=== PATIENT | female | born 1945 | race Caucasian/White ===

== ENCOUNTER → 2018-03-31 | Day surgery (SDC) | payer MEDICARE, OTHER ==
[2018-03-24 13:03] LABS: BASOPHILS # (AUTO) 0.1 (0.0-0.1); BASOPHILS % 1.1 % (0.0-1.0); EOSINOPHILS # (AUTO) 0.2 (0.0-0.4); EOSINOPHILS % 3.4 % (0.0-6.0); HEMATOCRIT 38.7 % (34.2-44.1); HEMOGLOBIN 12.8 g/dL (12.0-16.0); LYMPHOCYTES # (AUTO) 1.7 (1.0-3.2); MEAN CORPUSCULAR HGB CONC 33.1 g/dL (31-35); MEAN CORPUSCULAR VOLUME 87.8 fL (81-99); MONOCYTES # (AUTO) 0.5 (0.2-0.8); MONOCYTES % 9.4 % (4.4-11.3); NEUTROPHILS % 54.6 % (38.7-80.0); PLATELET COUNT 289 x10e3/uL (140-360); RED BLOOD COUNT 4.41 x10e6/uL (3.6-5.1); RED CELL DISTRIBUTION WIDTH 13.3 % (11.7-14.4)
[~2018-03-31] MED LIST: ATENOLOL50 MG PO; BENTYL PO; BENTYL10 MG PO; LABETALOL HCL 5 MG/ML 20ML VIAL ONE; LIPITOR20 MG PO; LORATADINE10 MG PO; Lipitor PO; METOCLOPRAMIDE HCL 10 MG/2ML VIAL ONE; MIDAZOLAM HCL 2 MG/2 ML VIAL ONE; NEXIUM40 MG PO; OMEPRAZOLE20 MG PO; OXYBUTYNIN CHLOR5 MG PO; PROPOFOL IV EMULSION 10 MG/ML 20 ML VIAL ONE; SIMVASTATIN20 MG PO
--- NOTE | 2018-03-31 13:55 | Operative Report ---
DATE OF PROCEDURE: March 31, 2018 REFERRING PHYSICIAN: Dr. Donald Woodson PROCEDURE PERFORMED: Esophagogastroduodenoscopy with biopsies and esophageal dilatation. INDICATIONS FOR PROCEDURE: Acid reflux, dysphagia. MEDICATION: Patient was done under MAC. Please see anesthesiologist's note. DESCRIPTION OF PROCEDURE: With the patient in the left lateral decubitus position, the flexible fiberoptic Olympus gastroscope was introduced into the esophagus under direct visualization without any difficulty. There was some patchy erythema noted in the distal esophagus. Tongues of velvety red mucosa were noted in the distal esophagus extending approximately 3 cm from the GE junction. Biopsies were obtained. The GE junction was noted at 35 cm from the incisors. The scope was then advanced with ease into the stomach, traversing an approximately 4-cm hiatal hernia. Mucosa overlying the antrum and the body revealed some patchy erythema and low-grade edema, and biopsies were obtained and sent to stain for H. Pylori. There were several hyperplastic-appearing polyps noted in the body, and some were partially excised with cold biopsy forceps. The pylorus appeared to be of normal contour and shape. It was intubated with ease, and the scope was advanced all the way to the 2nd portion of the duodenum. The scope was then withdrawn slowly. Mucosa overlying the proximal 2nd portion and the duodenal bulb appeared to be within normal limits. The scope was then withdrawn back into the stomach and retroflexed. The previously described hiatal hernia was also noted in the retroflexed position. The scope was then straightened out. It was subsequently withdrawn. The esophagus was then dilated to size 52-Sudanese Giron. Patient tolerated the procedure well. IMPRESSION 1. Mild, patchy, distal esophagitis. 2. Rule out Mejia's esophagus. 3. Esophagus dilated to size 52-Sudanese Giron. 4. A 4-cm hiatal hernia. 5. Gastric polyps, hyperplastic-appearing, some partially excised with the cold biopsy forceps. 6. Gastritis, biopsied. Biopsies sent to stain for H. pylori. PLAN: Follow up histology. Increase omeprazole to 40 mg 1 p.o. a.c. b.i.d. Job#: [id number] cc:DONALD WOODSON MD
== END | disposition home or self-care (01) ==
LOC: OR 09:14
PROVIDERS: ATTEND Internal Medicine Gastroenterology
DX: K21.0 Gastro-esophageal reflux disease with esophagitis (principal); R13.10 Dysphagia, unspecified; K31.7 Polyp of stomach and duodenum; K29.40 Chronic atrophic gastritis without bleeding; K44.9 Diaphragmatic hernia without obstruction or gangrene; K31.9 Disease of stomach and duodenum, unspecified; I10 Essential (primary) hypertension; E78.00 Pure hypercholesterolemia, unspecified; Z01.810 Encounter for preprocedural cardiovascular examination; Z01.812 Encounter for preprocedural laboratory examination; Z86.010 Personal history of colon polyps; Z88.6 Allergy status to analgesic agent; Z88.5 Allergy status to narcotic agent; Z88.0 Allergy status to penicillin
CPT/HCPCS: 36415; 43239; 43450; 85025; 88305; 88312; 93005; J2250; J2765; J3490

== ENCOUNTER 2018-06-21 08:43 | Inpatient (IN) | payer MEDICARE, OTHER ==
[~2018-06-21] VITALS: Ht 152.4 cm; Wt 95.3 kg
[~2018-06-21 08:43] MED LIST changes: -LABETALOL HCL 5 MG/ML 20ML VIAL ONE; -METOCLOPRAMIDE HCL 10 MG/2ML VIAL ONE; -MIDAZOLAM HCL 2 MG/2 ML VIAL ONE; -PROPOFOL IV EMULSION 10 MG/ML 20 ML VIAL ONE
--- OUTSIDE RECORDS SUMMARY | 2018-06-21 08:46 | XMS REPORT ---
Author Author [facility] Address Unknown Phone Unavailable Care Team Providers Care Music Video Director Name Role Phone Unavailable Unavailable Payers Payer Name Policy Type Policy Number Effective Date Expiration Date Problems This patient has no known problems. Allergies, Adverse Reactions, Alerts Allergy Name Allergy Type Status Severity Reaction(s) Onset Date Inactive Date Treating Clinician Comments Penicillins DA Active U 2004-06-22 00:00:00 Cephalosporins DA Active U 2004-06-22 00:00:00 Betalactams DA Active U 2004-06-22 00:00:00 Carbapenems DA Active U 2004-06-22 00:00:00 codeine DA Active U 2004-06-22 00:00:00 opium DA Active U 2004-06-22 00:00:00 propoxyphene DA Active U 2004-06-22 00:00:00 pentazocine DA Active U 2004-06-22 00:00:00 penicillin G DA Active U 2004-06-22 00:00:00 Not Converted 29. See Text. DA Active U 2004-06-22 00:00:00 No Known Contrast Allergies DA Active U 2004-06-22 00:00:00 No Known Food Allergies DA Active U 2004-06-22 00:00:00 No Known Other Allergies DA Active U 2004-06-22 00:00:00 OPIATES DA Active U 2004-06-22 00:00:00 PENICILLIN DA Active U 2004-06-22 00:00:00 Medications This patient has no known medications.
[2018-06-21 10:13] LABS: BASOPHILS # (AUTO) 0.1 (0.0-0.1); EOSINOPHILS # (AUTO) 0.2 (0.0-0.4); EOSINOPHILS % 2.6 % (0.0-6.0); HEMATOCRIT 40.2 % (34.2-44.1); HEMOGLOBIN 13.6 g/dL (12.0-16.0); LYMPHOCYTES # (AUTO) 1.6 (1.0-3.2); LYMPHOCYTES % 27.9 % (18.0-39.1); MEAN CORPUSCULAR HEMOGLOBIN 29.2 pg (28-32); MEAN CORPUSCULAR HGB CONC 33.8 g/dL (31-35); MEAN CORPUSCULAR VOLUME 86.5 fL (81-99); MONOCYTES # (AUTO) 0.6 (0.2-0.8); MONOCYTES % 9.9 % (4.4-11.3); NEUTROPHILS # (AUTO) 3.4 (2.1-6.9); NEUTROPHILS % 57.9 % (38.7-80.0); PLATELET COUNT 254 x10e3/uL (140-360); RED BLOOD COUNT 4.65 x10e6/uL (3.6-5.1); RED CELL DISTRIBUTION WIDTH 12.7 % (11.7-14.4)
[2018-06-21 10:26] LABS: ALANINE AMINOTRANSFERASE 45 IU/L (0-55); ALBUMIN 4.2 g/dL (3.5-5.0); ALBUMIN/GLOBULIN RATIO 1.4 (0.8-2.0); ALKALINE PHOSPHATASE 60 IU/L (40-150); ANION GAP 14.1 mmol/L (8-16); BLOOD UREA NITROGEN 14 mg/dL (7-26); BUN/CREATININE RATIO 16 (6-25); CALCIUM 10.2 mg/dL (8.4-10.2); CARBON DIOXIDE 24 mmol/L (22-29); CHLORIDE 104 mmol/L (98-107); EST GLOMERULAR FILTRATION RATE > 60 ML/MIN (60-); GLUCOSE 146 mg/dL (74-118); POTASSIUM 4.1 mmol/L (3.5-5.1); SODIUM 138 mmol/L (136-145)
[2018-06-21 10:41] LABS: BILIRUBIN,URINE NEGATIVE (NEGATIVE); CLARITY,URINE SL CLOUDY (CLEAR); COLOR,URINE YELLOW (YELLOW); KETONES,URINE NEGATIVE (NEGATIVE); LEUKOCYTE ESTERASE ,URINE TRACE (NEGATIVE); NITRITE,URINE NEGATIVE (NEGATIVE); PROTEIN,URINE DIPSTICK NEGATIVE (NEGATIVE); URINE UROBILINOGEN 0.2 mg/dL (0.2 - 1)
--- NOTE | 2018-06-21 11:51 | Diagnostic Imaging Report ---
PROCEDURE: X-RAY CHEST, TWO VIEWS COMPARISON: No comparison available to PACS issues. INDICATIONS: PREOPERATIVE CHEST XRAY FOR HIATAL HERNIA SURGERY FINDINGS: LUNGS: No consolidations or edema. PLEURA: No effusions or pneumothorax. HEART & MEDIASTINUM: The heart is within normal size-limits. Calcification within the thoracic aorta the which is tortuous. BONES & SOFT TISSUES: Degenerative changes of the spine. Mild wedge deformity of T12. Cervical anterior plate overlying the lower cervical spine. High density contrast within the left upper quadrant of the abdomen and likely is retained contrast within a gastric diverticulum as discussed in the June [address] CONCLUSION: No acute thoracic abnormality. Bennett Levine D.O. Dictated by: Bennett Levine D.O. on 06/21/2018 at 12:00 Electronically approved by: Bennett Levine D.O. on 06/21/2018 at 12:00
[2018-06-21] MEDS ORDERED: BUPIVACAINE 0.25%/EPI 30ML SDV INJ ONE (13:32)
[2018-06-21] MEDS ORDERED: FENTANYL CITRATE/PF 100MCG/2 ML INJ ONE ×2 (15:57→16:34)
[2018-06-21] MEDS ORDERED: MIDAZOLAM HCL 2 MG/2 ML VIAL ONE (15:57)
[2018-06-21] MEDS: SODIUM CHLORIDE 0.9% 1000ML 1,000 ML IV SCH ×2 (16:23→20:08)
[2018-06-21] MEDS ORDERED: HYDROMORPHONE 1MG/1ML INJ IV PRN (16:30)
[2018-06-21] MEDS ORDERED: LABETALOL HCL 20 ML ONE (16:30)
[2018-06-21] MEDS ORDERED: HYDROMORPHONE 2MG/ML 2 MG/ML ML ONE (17:18)
[2018-06-21] MEDS ORDERED: PANTOPRAZOLE 40 MG 10ML VIAL ONE (17:40)
[2018-06-21] MEDS ORDERED: METOCLOPRAMIDE HCL 10 MG/2ML VIAL ONE (17:40)
[2018-06-21] MEDS: PANTOPRAZOLE 40 MG 10ML VIAL IV SCH (17:57)
[2018-06-21] MEDS ORDERED: DEXAMETHASONE SOD PHOS INJ 4 MG/ML VIAL ONE (18:32)
[2018-06-21] MEDS ORDERED: LIDOCAINE HCL 2% LOCAL INJ 5 ML SDV VIAL INJ ONE (18:32)
[2018-06-21] MEDS ORDERED: PROPOFOL IV EMULSION 10 MG/ML 20 ML VIAL ONE (18:32)
[2018-06-21] MEDS ORDERED: ROCURONIUM BROMIDE 10 MG/ML 5ML VIAL ONE (18:32)
[2018-06-21] MEDS ORDERED: SEVOFLURANE INHAL SOLN 250 ML PEN BTL ONE (18:32)
[2018-06-21] MEDS ORDERED: ONDANSETRON HCL INJ 2 MG/ML VIAL ONE (18:32)
[2018-06-21] MEDS ORDERED: MEPERIDINE HCL INJ 50 MG/ML INJ ONE (19:32)
[2018-06-21 20:00] VITALS: BP 167/76
--- NOTE | 2018-06-21 20:22 | Operative Report ---
DATE OF PROCEDURE: June 21, 2018 PREOPERATIVE DIAGNOSES 1. Hiatal hernia with gastroesophageal reflux disease. 2. Cholecystitis and cholelithiasis. POSTOPERATIVE DIAGNOSES 1. Hiatal hernia with gastroesophageal reflux disease. 2. Cholecystitis and cholelithiasis. OPERATION PERFORMED: Laparoscopic repair of hiatal hernia with Jacob fundoplication and laparoscopic cholecystectomy. WAISTLINE JOINER LOCKSTITCH: Dr. Sebsatian Middleton. ANESTHESIA: General. COMPLICATIONS: None. ESTIMATED BLOOD LOSS: Minimal. DESCRIPTION OF PROCEDURE: With the patient lying in bed in the supine position under good general endotracheal anesthesia, the abdomen was prepped with Betadine solution and draped in the usual manner. A Veress needle was introduced into the left mid abdomen and pneumoperitoneum was established without any difficulty. An 11 mm trocar was placed in the left mid abdomen and a 10 mm video laparoscope was placed into the intraabdominal cavity. Under direct vision, two 5 mm trocars were placed in the subxiphoid region and another 11 mm trocar was placed in the left anterior axillary line and another 5 mm trocar was placed in the right upper quadrant. Video laparoscopy at this point revealed some fatty infiltration of the liver with a rather floppy left lobe of the liver. The patient had some adhesions to the gallbladder and a large gallstone contained within the gallbladder. In the area the hiatus there was a moderate-sized hiatal hernia present. There was a large fat pad in the hiatus as well. We decided to go ahead and proceed with the repair of hiatal hernia with Jacob fundoplication first. Using the harmonic scalpel, the right hiatal muscle was identified and freed up of all adhesions. We then managed to get posterior to the esophagus without any difficulty and cleared up the posterior esophagus. The patient had a previous bougie placed in the stomach. The esophagus was then cleared anteriorly without any difficulty as well and the short gastrics were then taken down with the harmonic scalpel all the way up to the top of the fundus and the fundus was totally freed up. The hernia was reduced back to the intra-abdominal cavity and some of the excess fat pad was resected. After this was done, the hiatus was then closed posteriorly with 2 sutures of 0 Ethibond thus giving us a good approximation of the hiatus without any tension. After this was done, the fundus of the stomach was then brought in a retroesophageal fashion to create a 360 degree wrap, which was a floppy type wrap without any tension whatsoever. The Jacob fundoplication was then performed using 0 Ethibond anchoring one side of the fundus to the lower esophagus to the other side of the fundus. Three sutures were utilized, and the skin was nice satisfactory floppy Jacob fundoplication without any tension whatsoever. The bougie was then removed and the nasogastric tube was left in place. At this point, we proceeded with the cholecystectomy. All the adhesions to the gallbladder were then slowly and carefully taken down. The peritoneum overlying the neck of the gallbladder was then opened and the cystic duct was identified. Cystic duct was followed to its junction with the common duct. Cystic duct was then circumferentially dissected away from the common duct, doubly clipped and divided. Cystic artery was similarly doubly clipped and divided. Gallbladder was then slowly and carefully taken off the liver bed using the harmonic scalpel and perfect hemostasis was ascertained. The gallbladder was grasped through the 12 mm trocar site and removed without any difficulty. Video laparoscopy was then again carried out. The liver bed was found to be perfectly dry. All of the excess fluid was aspirated. The area of the hiatus was also inspected and there was no bleeding whatsoever. The pneumoperitoneum was evacuated and all the trocars were removed under direct vision. The fascia of the 11 mm trocar was then closed with 0 Vicryl. All layers were infiltrated on the way out with solution of 0.25% percent Marcaine. Subcutaneous tissue was approximated with 3-0 Vicryl and the skin was closed with subcuticular 5-0 Vicryl. Benzoin, Steri-Strips and Band-Aids were applied. The sponge, lap and needle count was correct. Patient tolerated the procedure well and returned to the recovery room in stable condition. Job#: [id number]
[2018-06-21 20:26] VITALS: BP 151/72
[2018-06-21] MEDS: SODIUM CHLORIDE 0.9% 250ML IRRIG IR SCH (20:30)
[2018-06-21] MEDS: ONDANSETRON HCL INJ 2 MG/ML VIAL IV PRN (21:06)
[2018-06-22] VITALS (10 sets, daily range): BP systolic 126–179; BP diastolic 63–81
[2018-06-22] MEDS: SODIUM CHLORIDE 0.9% 250ML IRRIG IR SCH ×6 (00:30→20:43)
[2018-06-22] MEDS: ONDANSETRON HCL INJ 2 MG/ML VIAL IV PRN ×4 (01:10→22:34)
[2018-06-22] MEDS: SODIUM CHLORIDE 0.9% 1000ML 1,000 ML IV SCH ×3 (01:18→22:21)
[2018-06-22] MEDS: HYDROMORPHONE 2MG/ML 2 MG/ML ML IV PRN ×3 (03:15→17:38)
[2018-06-22 05:48] LABS: BASOPHILS % 0.2 % (0.0-1.0); HEMATOCRIT 38.7 % (34.2-44.1); HEMOGLOBIN 12.8 g/dL (12.0-16.0); LYMPHOCYTES # (AUTO) 0.8 (1.0-3.2); MEAN CORPUSCULAR HEMOGLOBIN 29.4 pg (28-32); MEAN CORPUSCULAR HGB CONC 33.1 g/dL (31-35); MONOCYTES # (AUTO) 0.9 (0.2-0.8); MONOCYTES % 9.5 % (4.4-11.3); NEUTROPHILS # (AUTO) 7.4 (2.1-6.9); NEUTROPHILS % 80.9 % (38.7-80.0); PLATELET COUNT 237 x10e3/uL (140-360); RED BLOOD COUNT 4.35 x10e6/uL (3.6-5.1); RED CELL DISTRIBUTION WIDTH 12.6 % (11.7-14.4)
[2018-06-22 06:07] LABS: ANION GAP 16.3 mmol/L (8-16); BLOOD UREA NITROGEN 14 mg/dL (7-26); BUN/CREATININE RATIO 16 (6-25); CALCIUM 9.2 mg/dL (8.4-10.2); CARBON DIOXIDE 22 mmol/L (22-29); CHLORIDE 101 mmol/L (98-107); CREATININE, SERUM 0.87 mg/dL (0.57-1.11); EST GLOMERULAR FILTRATION RATE > 60 ML/MIN (60-); GLUCOSE 186 mg/dL (74-118); POTASSIUM 4.3 mmol/L (3.5-5.1); SODIUM 135 mmol/L (136-145)
[2018-06-22] MEDS: ATENOLOL 50 MG TAB PO SCH (09:00)
[2018-06-22] MEDS ORDERED: PROMETHAZINE 12.5MG/ NACL 0.9% 12.5 MG/50 ML BAG IV ONE (11:45)
[2018-06-22] MEDS: PANTOPRAZOLE 40 MG 10ML VIAL IV SCH (14:52)
[2018-06-22] MEDS ORDERED: PROMETHAZINE 12.5MG/ NACL 0.9% 12.5 MG/50 ML BAG IV PRN (19:45)
[2018-06-22] MEDS: BISACODYL 10 MG SUPP PR SCH (21:30)
[2018-06-22] MEDS: MORPHINE SULFATE INJ 4 MG/ML INJ IV PRN (22:34)
[2018-06-23 00:04] VITALS: BP 154/66
[2018-06-23] MEDS: SODIUM CHLORIDE 0.9% 250ML IRRIG IR SCH ×6 (00:55→20:09)
[2018-06-23] MEDS: MORPHINE SULFATE INJ 4 MG/ML INJ IV PRN ×3 (02:16→07:59)
[2018-06-23] MEDS: ONDANSETRON HCL INJ 2 MG/ML VIAL IV PRN ×2 (03:00→07:30)
[2018-06-23 04:25] VITALS: BP 137/60
[2018-06-23 05:56] LABS: BASOPHILS % 0.3 % (0.0-1.0); EOSINOPHILS # (AUTO) 0.1 (0.0-0.4); EOSINOPHILS % 0.6 % (0.0-6.0); HEMATOCRIT 38.7 % (34.2-44.1); HEMOGLOBIN 12.1 g/dL (12.0-16.0); LYMPHOCYTES # (AUTO) 1.8 (1.0-3.2); LYMPHOCYTES % 20.1 % (18.0-39.1); MEAN CORPUSCULAR HEMOGLOBIN 28.7 pg (28-32); MEAN CORPUSCULAR HGB CONC 31.3 g/dL (31-35); MEAN CORPUSCULAR VOLUME 91.9 fL (81-99); MONOCYTES # (AUTO) 0.9 (0.2-0.8); MONOCYTES % 10.2 % (4.4-11.3); NEUTROPHILS % 68.5 % (38.7-80.0); PLATELET COUNT 240 x10e3/uL (140-360); RED BLOOD COUNT 4.21 x10e6/uL (3.6-5.1); RED CELL DISTRIBUTION WIDTH 13.2 % (11.7-14.4)
[2018-06-23 06:26] LABS: CALCIUM 9.1 mg/dL (8.4-10.2); CREATININE, SERUM 0.95 mg/dL (0.57-1.11)
[2018-06-23] MEDS: BISACODYL 10 MG SUPP PR SCH (08:00)
[2018-06-23] MEDS: ATENOLOL 50 MG TAB PO SCH ×2 (09:00→12:25)
[2018-06-23 10:08] VITALS: BP 176/74
[2018-06-23] MEDS ORDERED: ONDANSETRON HCL INJ 2 MG/ML VIAL IV ONE (10:45)
[2018-06-23] MEDS: SODIUM CHLORIDE 0.9% 1000ML 1,000 ML IV SCH ×2 (12:33→18:38)
[2018-06-23] MEDS: METOCLOPRAMIDE HCL 10 MG/2ML VIAL IV SCH ×2 (12:35→18:00)
[2018-06-23] MEDS ORDERED: BISACODYL 10 MG SUPP PR ONE (12:35)
[2018-06-23 12:43] VITALS: BP 180/81
[2018-06-23 16:25] VITALS: BP 151/67
[2018-06-23] MEDS: PANTOPRAZOLE 40 MG 10ML VIAL IV SCH (18:00)
[2018-06-23 20:00] VITALS: BP 134/64
[2018-06-24] VITALS: BP 135/60
[2018-06-24] MEDS: SODIUM CHLORIDE 0.9% 250ML IRRIG IR SCH (00:30)
[2018-06-24] MEDS: METOCLOPRAMIDE HCL 10 MG/2ML VIAL IV SCH (00:40)
[2018-06-24 05:41] LABS: BASOPHILS # (AUTO) 0.1 (0.0-0.1); BASOPHILS % 0.7 % (0.0-1.0); EOSINOPHILS # (AUTO) 0.1 (0.0-0.4); EOSINOPHILS % 1.6 % (0.0-6.0); HEMATOCRIT 34.9 % (34.2-44.1); HEMOGLOBIN 11.2 g/dL (12.0-16.0); LYMPHOCYTES # (AUTO) 1.5 (1.0-3.2); LYMPHOCYTES % 20.4 % (18.0-39.1); MEAN CORPUSCULAR HEMOGLOBIN 28.8 pg (28-32); MEAN CORPUSCULAR HGB CONC 32.1 g/dL (31-35); MEAN CORPUSCULAR VOLUME 89.7 fL (81-99); MONOCYTES # (AUTO) 0.8 (0.2-0.8); MONOCYTES % 10.6 % (4.4-11.3); NEUTROPHILS # (AUTO) 4.9 (2.1-6.9); NEUTROPHILS % 66.3 % (38.7-80.0); PLATELET COUNT 221 x10e3/uL (140-360); RED BLOOD COUNT 3.89 x10e6/uL (3.6-5.1); RED CELL DISTRIBUTION WIDTH 12.8 % (11.7-14.4)
[2018-06-24] MEDS ORDERED: BISACODYL 10 MG SUPP PR ONE (06:00)
[2018-06-24 06:19] LABS: ANION GAP 9.9 mmol/L (8-16); BLOOD UREA NITROGEN 10 mg/dL (7-26); BUN/CREATININE RATIO 13 (6-25); CALCIUM 8.8 mg/dL (8.4-10.2); CARBON DIOXIDE 26 mmol/L (22-29); CHLORIDE 106 mmol/L (98-107); CREATININE, SERUM 0.76 mg/dL (0.57-1.11); EST GLOMERULAR FILTRATION RATE > 60 ML/MIN (60-); GLUCOSE 121 mg/dL (74-118); POTASSIUM 3.9 mmol/L (3.5-5.1); SODIUM 138 mmol/L (136-145)
[2018-06-24] MEDS: ONDANSETRON HCL INJ 2 MG/ML VIAL IV PRN (06:30)
[2018-06-24] MEDS: SODIUM CHLORIDE 0.9% 1000ML 1,000 ML IV SCH ×2 (06:30→14:44)
[2018-06-24 08:24] VITALS: BP 152/67
[2018-06-24] MEDS: ATENOLOL 50 MG TAB PO SCH (09:27)
[2018-06-24 09:35] VITALS: BP 152/67
[2018-06-24 17:17] VITALS: BP 172/75
[2018-06-24] MEDS: PANTOPRAZOLE 40 MG 10ML VIAL IV SCH (18:48)
[2018-06-24 20:00] VITALS: BP 184/83
[2018-06-24 20:37] VITALS: BP 184/83
[2018-06-24] MEDS: BISACODYL 10 MG SUPP PR SCH (20:37)
[2018-06-25] VITALS (7 sets, daily range): BP systolic 144–182; BP diastolic 66–81
[2018-06-25] MEDS ORDERED: NITROGLYCERIN 2% OINT 1 GM PKT TOP PRN (00:45)
[2018-06-25] MEDS: SODIUM CHLORIDE 0.9% 1000ML 1,000 ML IV SCH (04:23)
[2018-06-25] MEDS: BISACODYL 10 MG SUPP PR SCH (08:00)
[2018-06-25] MEDS: ATENOLOL 50 MG TAB PO SCH (09:01)
[2018-06-25] MEDS ORDERED: FUROSEMIDE INJ 10 MG/ML 4 ML VIAL ONE (15:33)
[2018-06-25] MEDS ORDERED: FUROSEMIDE INJ 10 MG/ML 2 ML VIAL IV ONE (16:30)
[2018-06-25] MEDS: PANTOPRAZOLE 40 MG 10ML VIAL IV SCH (17:01)
--- NOTE | 2018-08-15 19:10 | Discharge Summary ---
ADMITTING DIAGNOSIS: Hiatal hernia with gastroesophageal reflux disease and cholelithiasis. DISCHARGE DIAGNOSIS: Hiatal hernia with gastroesophageal reflux disease and cholelithiasis. SECONDARY DIAGNOSIS:: Included hypertension. OPERATIONS PERFORMED: Was laparoscopic repair of hiatal hernia with Jacob fundoplication and laparoscopic cholecystectomy. COMPLICATIONS: None. HISTORY OF PRESENT ILLNESS: This 73-year-old female was admitted to the hospital with a history of having chronic indigestion with nausea, vomiting and gastroesophageal reflux disease. She also had an ultrasound of the gallbladder that showed her to have gallstones. Physical examination at time of admission was essentially negative. Patient was taken to surgery on the day of admission where she underwent an uneventful repair of a large hiatal hernia with Jacob fundoplication and also laparoscopic cholecystectomy. Postoperatively the patient did very well. Her nasogastric tube was removed on the 2nd postoperative day and she was started on a clear liquid diet which was advanced to a full liquid diet which she tolerated well. Finally on 06/25/2018 with the patient being afebrile, vital signs being stable, her wounds healing nicely, tolerating a full liquid diet well she was discharged to go home to be followed at the office at a later date. ELIN DOSS MD Job#: [id number]
== END 2018-06-25 20:50 | disposition home or self-care (01) | DRG 327 ==
LOC: OR 08:43 → PACU V 16:25 → MED/SURG2 19:08 → MED/SURG 06-22 15:27
PROVIDERS: ADMIT Surgery; ATTEND Surgery
PROC: 0FT44ZZ Resection of Gallbladder, Percutaneous Endoscopic Approach (ICD-10-PCS; 2018-06-21)
PROC: 0DV44ZZ Restriction of Esophagogastric Junction, Percutaneous Endoscopic Approach (ICD-10-PCS; principal; 2018-06-21 13:30)
PROC: 0BQT4ZZ Repair Diaphragm, Percutaneous Endoscopic Approach (ICD-10-PCS; 2018-06-21 13:30)
DX: K21.9 Gastro-esophageal reflux disease without esophagitis (principal); K80.10 Calculus of gallbladder with chronic cholecystitis without obstruction; Z68.41 Body mass index [BMI] 40.0-44.9, adult; K44.9 Diaphragmatic hernia without obstruction or gangrene; K82.8 Other specified diseases of gallbladder; Z01.810 Encounter for preprocedural cardiovascular examination; Z01.812 Encounter for preprocedural laboratory examination; Z01.811 Encounter for preprocedural respiratory examination; Z88.6 Allergy status to analgesic agent; Z88.5 Allergy status to narcotic agent; Z88.0 Allergy status to penicillin; Z88.8 Allergy status to other drugs, medicaments and biological substances; E66.9 Obesity, unspecified; J84.10 Pulmonary fibrosis, unspecified; N18.9 Chronic kidney disease, unspecified; E78.5 Hyperlipidemia, unspecified
CPT/HCPCS: 36415; 71046; 80048; 80053; 81003; 85025; 88304; 93005; C1766; J1100; J1940; J2001; J2175; J2250; J2270; J2405; J2550; J2765; J7030

== ENCOUNTER → 2019-10-23 | Outpatient (CLI) | payer MEDICARE, OTHER ==
[~2019-10-23] MED LIST changes: +IOPAMIDOL 370 MG/ML 200 ML INFUS..BTL INJ ONE; +SODIUM CHLORIDE 0.9% 100 ML ONE
[2019-10-23 11:30] LABS: CREATININE, SERUM 0.99 mg/dL (0.57-1.11)
--- NOTE | 2019-10-23 13:46 | Diagnostic Imaging Report ---
Examination: Cervical CT Angiogram with Contrast Clinical indication:Swelling in the neck. History of stenosis. Comparison studies:None Technique: Axial images were obtained from the thoracic inlet. Coronal and sagittal images reconstructed from the axial data. Intravenous contrast: 100 cc of [id number]. Computer generated maximum intensity projection and 3D images were performed of the bilateral carotid bifurcations and the aortic arch with bilateral common carotid and cervical internal carotid arteries on a separate workstation. Degree of stenosis at the carotid bulbs, if present, will be calculated using NASCET criteria where the smallest diameter at the location of stenosis is compared to the diameter of the more distal non-diseased vessel lumen. Dose modulation, iterative reconstruction, and/or weight based adjustment of the mA/kV was utilized to reduce the radiation dose to as low as reasonably achievable. Findings: Aortic arch and major vessels: Patent despite calcific plaque. Common carotid arteries: Patent Cervical carotid bifurcations: Right: Patent. Nonstenotic calcific plaque. Left :Patent. Nonstenotic calcific plaque. Internal carotid arteries: Right: There is mild (approximately 18%) stenosis of the proximal cervical segment of the right internal carotid artery for a length of 6.4 mm. Left: There is mild (approximately 33%) stenosis of the proximal cervical segment of the left internal carotid artery for a length of 6 mm. Vertebral arteries: Patent. IMPRESSION: 1. Mild stenosis of the proximal cervical segments of the bilateral internal carotid arteries as detailed above. 2. Nonstenotic calcific plaque of the aortic arch and bilateral carotid bifurcations. Signed by: Dr. Cheryl Bajwa M.D. on 10/23/2019 1:43 PM
== END ==
LOC: CT 10:30
PROVIDERS: ATTEND Internal Medicine
DX: M54.2 Cervicalgia (principal)
CPT/HCPCS: 36415; 70498; 82565; 84520; J7050; Q9967

== ENCOUNTER 2021-02-19 08:03 | Observation (INO) | payer MEDICARE, OTHER ==
[2021-02-16 10:22] LABS: BASOPHILS % 0.7 % (0.0-1.0); EOSINOPHILS # (AUTO) 0.2 (0.0-0.4); HEMATOCRIT 39.8 % (34.2-44.1); LYMPHOCYTES # (AUTO) 1.8 (1.0-3.2); LYMPHOCYTES % 29.8 % (18.0-39.1); MEAN CORPUSCULAR HEMOGLOBIN 28.8 pg (28-32); MEAN CORPUSCULAR HGB CONC 32.7 g/dL (31-35); MEAN CORPUSCULAR VOLUME 88.2 fL (81-99); MONOCYTES # (AUTO) 0.6 (0.2-0.8); NEUTROPHILS # (AUTO) 3.4 (2.1-6.9); NEUTROPHILS % 56.2 % (38.7-80.0); PLATELET COUNT 239 x10e3/uL (140-360); RED BLOOD COUNT 4.51 x10e6/uL (3.6-5.1); RED CELL DISTRIBUTION WIDTH 13.2 % (11.7-14.4)
[2021-02-16 10:59] LABS: ANION GAP 13.1 mmol/L (8-16); CALCIUM 9.6 mg/dL (8.4-10.2); CREATININE, SERUM 1.11 mg/dL (0.57-1.11); POTASSIUM 4.1 mmol/L (3.5-5.1)
[2021-02-16 11:08] LABS: INR 0.84
[2021-02-16 11:09] LABS: PARTIAL THROMBOPLASTIN TIME 23.5 seconds (23.8-35.5)
[~2021-02-19] VITALS: Ht 152.4 cm; Wt 78.5 kg
[~2021-02-19 08:03] MED LIST changes: +CRESTOR10 MG PO; +FARXIGA10 MG PO; +GLIMEPIRIDE2 MG PO; +HYDROCHLOROTHIA25 MG PO; -IOPAMIDOL 370 MG/ML 200 ML INFUS..BTL INJ ONE; +LOSARTAN POTASS25 MG PO; +LYRICA50 MG PO; -SODIUM CHLORIDE 0.9% 100 ML ONE
[2021-02-19] MEDS ORDERED: Vancomycin IV 1 GM VIAL ONE ×2 (08:16→08:18)
[2021-02-19] MEDS ORDERED: SODIUM CHLORIDE 0.9% 250ML 250 ML ONE (08:16)
[2021-02-19] MEDS ORDERED: LIDOCAINE 1% W/EPINEPHRINE 20 ML VIAL ONE (08:18)
[2021-02-19] MEDS ORDERED: THROMBIN FOR SOLN 5,000 UNIT VIAL ONE (08:18)
[2021-02-19 08:51] VITALS: BP 125/58
[2021-02-19] MEDS ORDERED: ULTRAM50 MG PO (11:27)
[2021-02-19] MEDS ORDERED: ACETAMINOPHEN 325 MG TAB PO PRN (11:30)
[2021-02-19] MEDS ORDERED: HYDROMORPHONE 2MG/ML 2 MG/ML ML IV PRN (11:30)
[2021-02-19] MEDS ORDERED: MORPHINE SULFATE 5 MG/ML VIAL IM PRN (11:30)
[2021-02-19] MEDS ORDERED: PROMETHAZINE HCL (IM) 25 MG/ML VIAL IM PRN (11:30)
[2021-02-19] MEDS ORDERED: OXYCODONE/ACETAMINOPHEN 5-325 1 EACH TABLET PO PRN (11:30)
[2021-02-19] MEDS ORDERED: CARISOPRODOL 350 MG TAB PO PRN (11:30)
[2021-02-19] MEDS ORDERED: MAGNESIUM/ALUMINUM/SIMETHICONE 30 ML UDC PO PRN (11:30)
[2021-02-19] MEDS ORDERED: ONDANSETRON HCL INJ 2MG/ML 2ML 2 MG/ML VIAL IV PRN (11:30)
[2021-02-19] MEDS ORDERED: FENTANYL CITRATE/PF 100MCG/2 ML INJ ONE ×2 (11:31→12:03)
[2021-02-19] MEDS ORDERED: ONDANSETRON HCL INJ 2MG/ML 2ML 2 MG/ML VIAL ONE (13:25)
[2021-02-19] MEDS ORDERED: LIDOCAINE HCL 2% LOCAL INJ 5 ML SDV VIAL INJ ONE (13:25)
[2021-02-19] MEDS ORDERED: ROCURONIUM BROMIDE 10 MG/ML 5ML VIAL IV ONE (13:25)
[2021-02-19] MEDS ORDERED: EPHEDRINE SULFATE INJ 50 MG/ML VIAL ONE (13:25)
[2021-02-19] MEDS ORDERED: DEXAMETHASONE SOD PHOS INJ 4 MG/ML VIAL ONE (13:25)
[2021-02-19] MEDS ORDERED: POVIDONE IODINE 0.05% 0.05 % ML PO ONE (13:25)
[2021-02-19] MEDS ORDERED: SEVOFLURANE INHAL SOLN 250 ML PEN BTL ONE (13:25)
[2021-02-19] MEDS ORDERED: PROPOFOL IV EMULSION 10 MG/ML 20 ML VIAL ONE (13:25)
[2021-02-19] MEDS ORDERED: LIDOCAINE HCL 2% JELLY 5 ML TUBE ONE (13:25)
[2021-02-19] MEDS: PREGABALIN 50 MG CAP PO SCH ×2 (15:00→22:01)
[2021-02-19 15:40] VITALS: BP 121/51
[2021-02-19 15:56] VITALS: BP 144/63
[2021-02-19] MEDS: GLIMEPIRIDE 2 MG TAB PO SCH (16:40)
[2021-02-19] MEDS: LACTATED RINGER'S 1,000 ML IV SCH ×2 (17:00→19:50)
[2021-02-19] MEDS: TRAMADOL HCL 50 MG TAB PO PRN (18:35)
[2021-02-19 20:15] VITALS: BP 125/58
[2021-02-19 20:51] VITALS: BP 125/58
[2021-02-19] MEDS ORDERED: SIMVASTATIN 40 MG TAB PO SCH (21:00)
[2021-02-19] MEDS ORDERED: ZOLPIDEM TARTRATE 5 MG TAB PO PRN (21:00)
[2021-02-19] MEDS: Vancomycin IV 1 GM in SODIUM CHLORIDE 0.9% 250ML 250 ML IV SCH (21:52)
[2021-02-20] VITALS (7 sets, daily range): BP systolic 116–127; BP diastolic 52–80
[2021-02-20] MEDS: LACTATED RINGER'S 1,000 ML IV SCH ×2 (04:10→08:10)
[2021-02-20] MEDS: TRAMADOL HCL 50 MG TAB PO PRN (04:34)
[2021-02-20] MEDS ORDERED: PANTOPRAZOLE SOD 40 MG TABEC PO SCH (07:30)
[2021-02-20] MEDS: GLIMEPIRIDE 2 MG TAB PO SCH (08:20)
[2021-02-20] MEDS: PREGABALIN 50 MG CAP PO SCH (08:26)
[2021-02-20] MEDS: Vancomycin IV 1 GM in SODIUM CHLORIDE 0.9% 250ML 250 ML IV SCH (08:28)
[2021-02-20] MEDS ORDERED: ATENOLOL 50 MG TAB PO SCH (09:00)
[2021-02-20] MEDS ORDERED: LOSARTAN POTASSIUM 25 MG TAB PO SCH (09:00)
[2021-02-20] MEDS ORDERED: HYDROCHLOROTHIAZIDE 25 MG TAB PO SCH (09:00)
[2021-02-20] MEDS ORDERED: ONDANSETRON HCL 4 MG ORAL DISINTEGRATING TAB PO PRN (10:30)
[2021-02-20] MEDS: DEXAMETHASONE 4 MG TAB PO SCH ×2 (10:50→13:10)
== END 2021-02-20 15:24 | disposition home or self-care (01) ==
LOC: OR 08:03 → PACU V 11:19 → MED/SURG 15:50
PROVIDERS: ADMIT Neurological Surgery; ATTEND Neurological Surgery
DX: M48.062 Spinal stenosis, lumbar region with neurogenic claudication (principal); M54.5 Low back pain; I10 Essential (primary) hypertension; E11.9 Type 2 diabetes mellitus without complications; E78.5 Hyperlipidemia, unspecified; Z01.818 Encounter for other preprocedural examination
CPT/HCPCS: 36415 ×3; 63047; 63048 ×2; 71046; 72020; 80048; 82948 ×2; 85025; 85610; 85730; 86850; 86900; 88304; 88311; 97116; 97161; 97530; G0378 ×2; J1100; J2001 ×2; J2405; J2704; J3010; J3370 ×2; J7050 ×2; J7121; J8540; S0164

== ENCOUNTER → 2022-02-02 | Day surgery (SDC) | payer MEDICARE, OTHER ==
[~2022-02-02] MED LIST changes: +FENTANYL CITRATE/PF 100MCG/2 ML INJ ONE; +MIDAZOLAM HCL 2 MG/2 ML VIAL ONE; +ONDANSETRON HCL INJ 2MG/ML 2ML 2 MG/ML VIAL ONE; +OR PHACO EYE KIT ONE; +PREOP PHACO EYE KIT ONE; +ULTRAM50 MG PO
[2022-02-02 16:15] VITALS: BP 128/58
== END | disposition home or self-care (01) ==
LOC: OR 10:43
PROVIDERS: ATTEND Ophthalmology
DX: H25.11 Age-related nuclear cataract, right eye (principal); I10 Essential (primary) hypertension; E11.9 Type 2 diabetes mellitus without complications; E78.5 Hyperlipidemia, unspecified; K21.9 Gastro-esophageal reflux disease without esophagitis; K44.9 Diaphragmatic hernia without obstruction or gangrene; Z88.6 Allergy status to analgesic agent; Z88.0 Allergy status to penicillin; Z01.810 Encounter for preprocedural cardiovascular examination; Z20.822 Contact with and (suspected) exposure to COVID-19; Z79.84 Long term (current) use of oral hypoglycemic drugs; Z79.899 Other long term (current) drug therapy; Z87.891 Personal history of nicotine dependence
CPT/HCPCS: 36415; 66984; 82948; 93005; J2405; U0002; V2632; J2250; J3010

== ENCOUNTER → 2022-02-16 | Day surgery (SDC) | payer MEDICARE, OTHER ==
[~2022-02-16] MED LIST changes: +GLYCOPYRROLATE INJ 0.2 MG/ML VIAL ONE; +POVIDONE IODINE 0.05% 0.05 % ML PO ONE
[2022-02-16 11:50] VITALS: BP 127/62
== END | disposition home or self-care (01) ==
LOC: OR 08:16
PROVIDERS: ATTEND Ophthalmology
DX: H25.12 Age-related nuclear cataract, left eye (principal); I10 Essential (primary) hypertension; E11.9 Type 2 diabetes mellitus without complications; E66.9 Obesity, unspecified; Z20.822 Contact with and (suspected) exposure to COVID-19; Z79.84 Long term (current) use of oral hypoglycemic drugs; Z79.899 Other long term (current) drug therapy; Z68.33 Body mass index [BMI] 33.0-33.9, adult
CPT/HCPCS: 36415; 66984; 82948; J2250; J2405; J3010; U0002; V2632

== ENCOUNTER → 2024-06-26 | Day surgery (SDC) | payer MEDICARE, OTHER ==
[2024-06-19 12:44] LABS: BASOPHILS % 0.6 % (0.0-1.0); EOSINOPHILS # (AUTO) 0.2 (0.0-0.4); EOSINOPHILS % 3.5 % (0.0-6.0); HEMATOCRIT 38.2 % (34.2-44.1); HEMOGLOBIN 11.8 g/dL (12.0-16.0); LYMPHOCYTES # (AUTO) 1.4 (1.0-3.2); LYMPHOCYTES % 26.1 % (18.0-39.1); MEAN CORPUSCULAR HEMOGLOBIN 29.1 pg (28-32); MEAN CORPUSCULAR HGB CONC 30.9 g/dL (31-35); MEAN CORPUSCULAR VOLUME 94.3 fL (81-99); MONOCYTES # (AUTO) 0.5 (0.2-0.8); MONOCYTES % 10.4 % (4.4-11.3); NEUTROPHILS # (AUTO) 3.1 (2.1-6.9); NEUTROPHILS % 58.8 % (38.7-80.0); PLATELET COUNT 214 x10e3/uL (140-360); RED BLOOD COUNT 4.05 x10e6/uL (3.6-5.1); RED CELL DISTRIBUTION WIDTH 13.5 % (11.7-14.4); WHITE BLOOD COUNT 5.21 x10e3/uL (4.8-10.8)
[2024-06-19 13:10] LABS: ANION GAP 12.9 mmol/L (8-16); CALCIUM 9.5 mg/dL (8.4-10.2); CREATININE, SERUM 1.04 mg/dL (0.57-1.11); POTASSIUM 3.9 mmol/L (3.5-5.1)
[~2024-06-26] MED LIST changes: +ASPIRIN81 MG PO; +BUPIVACAINE HCL 0.5% INJ 30 ML VIAL INJ ONE; +CELEBREX200 MG PO; +CRESTOR40 MG PO; +FUROSEMIDE40 MG PO; -GLYCOPYRROLATE INJ 0.2 MG/ML VIAL ONE; -MIDAZOLAM HCL 2 MG/2 ML VIAL ONE; +MUPIROCIN 2% OINT 22 GM TUBE ONE; -ONDANSETRON HCL INJ 2MG/ML 2ML 2 MG/ML VIAL ONE; -OR PHACO EYE KIT ONE; -POVIDONE IODINE 0.05% 0.05 % ML PO ONE; -PREOP PHACO EYE KIT ONE; +SINGULAIR10 MG PO; +ZETIA10 MG PO
[2024-06-26] MEDS: LACTATED RINGER'S 1,000 ML ONE (05:52)
[2024-06-26] MEDS: CLINDAMYCIN 600MG / 50ML 50 ML IV ONE (05:53)
[2024-06-26 07:50] VITALS: TEMP 97.4
[2024-06-26 08:40] VITALS: BP 127/61; PULSE 56; RESP 16; O2SAT 96
== END | disposition home or self-care (01) ==
LOC: OR 05:10 → EDSTATUS 07:00
PROVIDERS: ATTEND Plastic Surgery
DX: M65.322 Trigger finger, left index finger (principal); M65.352 Trigger finger, left little finger; I10 Essential (primary) hypertension; K21.9 Gastro-esophageal reflux disease without esophagitis; E11.9 Type 2 diabetes mellitus without complications; Z79.84 Long term (current) use of oral hypoglycemic drugs; R00.1 Bradycardia, unspecified; Z01.810 Encounter for preprocedural cardiovascular examination; Z01.812 Encounter for preprocedural laboratory examination; Z01.818 Encounter for other preprocedural examination; Z79.899 Other long term (current) drug therapy; Z79.82 Long term (current) use of aspirin; Z88.0 Allergy status to penicillin; Z88.5 Allergy status to narcotic agent
CPT/HCPCS: 26055 ×2; 36415 ×2; 71046; 80048; 82948; 85025; 93005; J3010; J7121

== ENCOUNTER → 2024-08-07 | Day surgery (SDC) | payer MEDICARE, OTHER ==
[2024-07-30 10:25] LABS: BASOPHILS # (AUTO) 0.1 (0.0-0.1); BASOPHILS % 1.2 % (0.0-1.0); EOSINOPHILS # (AUTO) 0.1 (0.0-0.4); EOSINOPHILS % 2.2 % (0.0-6.0); HEMATOCRIT 38.5 % (34.2-44.1); LYMPHOCYTES # (AUTO) 1.7 (1.0-3.2); LYMPHOCYTES % 27.6 % (18.0-39.1); MEAN CORPUSCULAR HGB CONC 31.2 g/dL (31-35); MONOCYTES # (AUTO) 0.7 (0.2-0.8); MONOCYTES % 11.5 % (4.4-11.3); NEUTROPHILS # (AUTO) 3.4 (2.1-6.9); NEUTROPHILS % 57.2 % (38.7-80.0); PLATELET COUNT 235 x10e3/uL (140-360); RED BLOOD COUNT 4.14 x10e6/uL (3.6-5.1); RED CELL DISTRIBUTION WIDTH 12.8 % (11.7-14.4); WHITE BLOOD COUNT 5.98 x10e3/uL (4.8-10.8)
[~2024-08-07] MED LIST changes: +ACETAMINOPHEN 1000 MG/100 ML 100 ML IV ONE; -BUPIVACAINE HCL 0.5% INJ 30 ML VIAL INJ ONE; +DEXAMETHASONE SOD PHOS INJ 4 MG/ML SDV ONE; +LIDOCAINE HCL 2% LOCAL INJ 5 ML SDV VIAL INJ ONE; -MUPIROCIN 2% OINT 22 GM TUBE ONE; +ONDANSETRON HCL INJ 2MG/ML 2ML 2 MG/ML VIAL ONE; +PROPOFOL IV EMULSION 10 MG/ML 20 ML VIAL ONE
[2024-08-07] MEDS: LACTATED RINGER'S 1,000 ML ONE (07:27)
[2024-08-07] MEDS: CLINDAMYCIN 600MG / 50ML 50 ML IV ONE (07:28)
[2024-08-07 08:58] VITALS: TEMP 97.4
[2024-08-07 09:55] VITALS: BP 160/80; PULSE 60; RESP 16; O2SAT 94
== END | disposition home or self-care (01) ==
LOC: OR 05:42
PROVIDERS: ATTEND Plastic Surgery
DX: M65.351 Trigger finger, right little finger (principal); I10 Essential (primary) hypertension; E78.5 Hyperlipidemia, unspecified; E11.9 Type 2 diabetes mellitus without complications; K21.9 Gastro-esophageal reflux disease without esophagitis; K44.9 Diaphragmatic hernia without obstruction or gangrene; Z88.6 Allergy status to analgesic agent; Z88.0 Allergy status to penicillin; Z01.812 Encounter for preprocedural laboratory examination; Z79.82 Long term (current) use of aspirin; Z79.899 Other long term (current) drug therapy
CPT/HCPCS: 26055; 36415; 85025; J0131; J1100; J2003; J2405; J2704; J3010; J7121

== ENCOUNTER → 2024-10-19 | Outpatient (REF) | payer MEDICARE, OTHER ==
[~2024-10-19] MED LIST changes: -ACETAMINOPHEN 1000 MG/100 ML 100 ML IV ONE; -DEXAMETHASONE SOD PHOS INJ 4 MG/ML SDV ONE; -FENTANYL CITRATE/PF 100MCG/2 ML INJ ONE; -LIDOCAINE HCL 2% LOCAL INJ 5 ML SDV VIAL INJ ONE; -ONDANSETRON HCL INJ 2MG/ML 2ML 2 MG/ML VIAL ONE; -PROPOFOL IV EMULSION 10 MG/ML 20 ML VIAL ONE
== END ==
LOC: MRI 10-11 13:19
PROVIDERS: ATTEND Internal Medicine
DX: M54.2 Cervicalgia (principal); M54.31 Sciatica, right side
CPT/HCPCS: 72141; 72148